=== PATIENT | male | born 1955 | race Caucasian/White ===

== ENCOUNTER 2024-04-18 08:13 | Inpatient (IN) | payer OTHER ==
[~2024-04-18] VITALS: Ht 172.7 cm; Wt 95.0 kg
[2024-04-18] VITALS (13 sets, daily range): BP systolic 97–142; BP diastolic 69–95
[~2024-04-18 08:13] MED LIST: AMOCLA875 PO; Acetaminophen 500 MG Tab PO SCH; CIPR500 PO; CeFAZolin Sodium 2,000 MG in NS 100 ML IV SCH; Gabapentin 300 MG Cap PO SCH; IBUP600 PO; LISI10 PO; Lactated Ringer's 1,000 ML IV SCH; METR500 PO; OXYACE5T PO; PROM25 PO; RXOXYACE PO
[2024-04-18] MEDS ORDERED: CeFAZolin Sodium 2,000 MG VIAL ONE (08:21)
[2024-04-18] MEDS ORDERED: Metoclopramide HCl 5MG / ML 2ML Vial ONE (08:53)
[2024-04-18] MEDS ORDERED: Ondansetron HCl 2 MG / ML 2ML Vial ONE (08:53)
[2024-04-18] MEDS ORDERED: Sugammadex Sodium 200 MG/2ML SDV (100 MG/ML) ONE (08:53)
[2024-04-18] MEDS ORDERED: Ketorolac Tromethamine 30mg Vial ONE (08:53)
[2024-04-18] MEDS ORDERED: Rocuronium Bromide 10 MG/ML 5ML Injection IV ONE (08:53)
[2024-04-18] MEDS ORDERED: Dexamethasone Sod Phos 10 MG/ML 1ML VIAL ONE (08:53)
[2024-04-18] MEDS ORDERED: HYDROmorphone HCl/Pf 1MG SYR ONE (08:53)
[2024-04-18] MEDS ORDERED: Lidocaine HCl 4% 5 ML SDA ONE (09:08)
[2024-04-18] MEDS ORDERED: propofoL 100 ML IV ONE (09:08)
[2024-04-18] MEDS ORDERED: Bupivacaine 0.5% HCl 5 MG/ML 30MLVIAL ONE (09:14)
[2024-04-18] MEDS ORDERED: Phenylephrine HCl 100 MCG/ML-NS 10MLSYR (1MG/10ML) ONE (09:41)
[2024-04-18] MEDS ORDERED: FentaNYL Citrate 50 MCG/ML 2 ML Injection ONE (11:50)
--- NOTE | 2024-04-18 15:02 | NUR ---
POST OP: REPORT RECEIVED FROM SENIOR OPERATOR. PT TO UNIT AT ABOUT 1300. SURGICAL SITES WNL, VSS, A/O. PT DENIES PAIN AT THIS TIME, ABLE TO TAKE SIPS OF WATER, NO N/V. PT ABLE TO AMBULATE. DR. STEVENS IN ROOM AT ABOUT 1500- PT OK FOR DISCHARGE. IV DC'D BY AZALIA IBARRA. DISCHARGE INSTRUCTIONS GIVEN BY DR. STEVENS AT BEDSIDE.
--- NOTE | 2024-04-18 15:26 | NUR ---
PT DISCHARGED AT ABOUT 1510, LEFT UNIT VIA WHEELCHAIR WITH FAMILY
== END 2024-04-18 15:10 | disposition home or self-care (01) | DRG 355 ==
LOC: MEDS 08:13 → PRE IP 09:30 → SURS 12:42
PROVIDERS: ADMIT Surgery
PROC: 8E0W4CZ Robotic Assisted Procedure of Trunk Region, Percutaneous Endoscopic Approach (ICD-10-PCS; 2024-04-18)
PROC: 0WUF4JZ Supplement Abdominal Wall with Synthetic Substitute, Percutaneous Endoscopic Approach (ICD-10-PCS; principal; 2024-04-18 09:30)
DX: K43.6 Other and unspecified ventral hernia with obstruction, without gangrene (principal); M62.08 Separation of muscle (nontraumatic), other site; I10 Essential (primary) hypertension; Z79.899 Other long term (current) drug therapy; I25.2 Old myocardial infarction; E66.9 Obesity, unspecified; Z68.31 Body mass index [BMI] 31.0-31.9, adult
CPT/HCPCS: A9270; C1781; J0690; J1100; J1171; J1885; J2003; J2371; J2405; J2704; J2765; J3010; J7120